=== PATIENT | male | born 1990 | race American Indian/Alaskan Native ===

== ENCOUNTER 2020-10-13 23:09 | Emergency (ER) | payer OTHER ==
[2020-10-14 00:10] LABS: Basophils % (Auto) 0.3 % (0.0-1.8); Eosinophils # (Auto) 0.1 K/mm3 (0.0-0.4); Eosinophils % (Auto) 0.8 % (0.0-4.3); Hematocrit 38.8 % (35.5-45.6); Hemoglobin 12.4 gm/dl (11.8-15.2); Lymphocytes # (Auto) 1.7 K/mm3 (1.2-5.4); Lymphocytes % (Auto) 23.1 % (13.4-35.0); Mean Corpuscular HGB Conc 32 % (32-34); Mean Corpuscular Volume 75 fl (84-94); Monocytes # (Auto) 0.6 K/mm3 (0.0-0.8); Monocytes % (Auto) 7.6 % (0.0-7.3); Platelet Count 213 K/mm3 (140-440); Red Blood Count 5.21 M/mm3 (3.65-5.03); Red Cell Distribution Width 13.7 % (13.2-15.2)
--- NOTE | 2020-10-14 00:16 | XRay Report ---
CHEST 1 VIEW 10/13/2020 11:05 PM INDICATION / CLINICAL INFORMATION: possible Sepsis. COMPARISON: None available. FINDINGS: SUPPORT DEVICES: None. HEART / MEDIASTINUM: Prominence of the right paratracheal region. LUNGS / PLEURA: No significant pulmonary or pleural abnormality. No pneumothorax. ADDITIONAL FINDINGS: No significant additional findings. IMPRESSION: 1. No lung infiltrate. 2. Prominence of the right paratracheal region. Follow-up PA and lateral chest is recommended for mor e complete evaluation. Signer Name: Pedro Lorenz MD Signed: 10/14/2020 12:11 AM Workstation Name: [id number]
[2020-10-14 00:24] LABS: INR 1.06 (0.87-1.13)
[2020-10-14 00:29] LABS: Alanine Aminotransferase 51 units/L (7-56); Albumin 4.2 g/dL (3.9-5); BUN/Creatinine Ratio 13; Blood Urea Nitrogen 13 mg/dL (9-20); Calcium 8.8 mg/dL (8.4-10.2); Hemolysis Index 3
[2020-10-14] MEDS ORDERED: KETOROLAC 30 MG/1 ML INJ IM ONE (00:42)
[2020-10-14] MEDS ORDERED: ACETAMINOPHEN 325 MG TAB PO ONE (00:46)
[2020-10-14 03:46] VITALS: BP 119/84
--- NOTE | 2020-10-14 04:27 | Emergency Department Report ---
HPI - General Chief Complaint: Fever Time Seen by Provider: 10/14/20 01:24 - HPI HPI: Room 19 The patient is a 30-year-old male present with a chief complaint of fever. The patient states for the past 2 days she has had a fever and he noticed swelling to the right side of his neck. The patient states he went to [facility] yesterday and was evaluated. Patient states he was started on antibiotic Keflex and he began taking it today (2 doses). Patient states he developed a fever 105 F prompting him to come to the emergency department for evaluation. Patient denies cough, shortness of breath, nausea/vomiting/diarrhea or pain of any type. The patient states he tested negative for Covid yesterday as well. When asked how he is feeling currently the patient states "I feel okay, just weak." ED Past Medical Hx - Past Medical History Previous Medical History?: Yes Hx HIV: Yes (Unknown CD4, currently on medication) - Surgical History Past Surgical History?: No - Family History Family history: no significant - Social History Smoking Status: Never Smoker Substance Use Type: None (Denies illicit drug use), Alcohol (Occasional) ED Review of Systems ROS: Stated complaint: FEVER Other details as noted in HPI Constitutional: fever, weakness Eyes: denies: eye pain ENT: denies: throat pain Respiratory: denies: cough, shortness of breath Cardiovascular: denies: chest pain Endocrine: no symptoms reported Gastrointestinal: denies: abdominal pain, nausea, vomiting, diarrhea Genitourinary: denies: dysuria Musculoskeletal: denies: back pain Neurological: denies: headache Physical Exam - Physical Exam Vital Signs: Vital Signs 10/13/20 10/14/20 23:38 03:43 Temperature 101.9 F H 97.6 F Pulse Rate 119 H 74 Respiratory 16 16 Rate Blood Pressure 128/82 Blood Pressure 119/84 [Right] O2 Sat by Pulse 98 98 Oximetry Vital Signs 10/13/20 10/14/20 23:38 03:43 Temperature 101.9 F H 97.6 F Pulse Rate 119 H 74 Respiratory 16 16 Rate Blood Pressure 128/82 Blood Pressure 119/84 [Right] O2 Sat by Pulse 98 98 Oximetry Physical Exam: GENERAL: The patient is well-developed well-nourished male lying on stretcher not appearing to be in acute distress. [] HEENT: Normocephalic. Atraumatic. Extraocular motions are intact. Patient has moist mucous membranes. Oropharynx clear. NECK: Supple. Trachea midline CHEST/LUNGS: Clear to auscultation. There is no respiratory distress noted. HEART/CARDIOVASCULAR: Regular. There is no tachycardia. There is no gallop rub or murmur. ABDOMEN: Abdomen is soft, nontender. Patient has normal bowel sounds. There is no abdominal distention. SKIN: There is no rash. There is no edema. There is no diaphoresis. NEURO: The patient is awake, alert, and oriented. The patient is cooperative. The patient has no focal neurologic deficits. The patient has normal speech. GCS 15 MUSCULOSKELETAL: There is no evidence of acute injury. ED Course Vital Signs 10/13/20 10/14/20 23:38 03:43 Temperature 101.9 F H 97.6 F Pulse Rate 119 H 74 Respiratory 16 16 Rate Blood Pressure 128/82 Blood Pressure 119/84 [Right] O2 Sat by Pulse 98 98 Oximetry ED Medical Decision Making - Lab Data Result diagrams: 10/13/20 23:45 10/13/20 23:45 Laboratory Tests 10/13/20 10/13/20 10/13/20 23:45 23:45 23:45 WBC 7.2 RBC 5.21 H Hgb 12.4 Hct 38.8 MCV 75 L MCH 24 L MCHC 32 RDW 13.7 Plt Count 213 Lymph % (Auto) 23.1 [place] % (Auto) 7.6 H Eos % (Auto) 0.8 Baso % (Auto) 0.3 Lymph # (Auto) 1.7 [place] # (Auto) 0.6 Eos # (Auto) 0.1 Baso # (Auto) 0.0 Seg Neutrophils % 68.2 Seg Neutrophils # 4.9 PT 13.6 INR 1.06 VBG pH Sodium 136 L Potassium 4.0 Chloride 100.6 Carbon Dioxide 22 Anion Gap 17 BUN 13 Creatinine 1.0 Estimated GFR > 60 BUN/Creatinine Ratio 13 Glucose 118 H Lactic Acid Calcium 8.8 Total Bilirubin 0.30 AST 28 ALT 51 Alkaline Phosphatase 161 H Total Protein 8.0 Albumin 4.2 Albumin/Globulin Ratio 1.1 Urine Color Urine Turbidity Urine pH Ur Specific [place] Urine Protein Urine Glucose (UA) Urine Ketones Urine Blood Urine Nitrite Urine Bilirubin Urine Urobilinogen Ur Leukocyte Esterase Urine WBC (Auto) Urine RBC (Auto) 10/13/20 10/13/20 10/14/20 23:45 23:45 02:56 WBC RBC Hgb Hct MCV MCH MCHC RDW Plt Count Lymph % (Auto) [place] % (Auto) Eos % (Auto) Baso % (Auto) Lymph # (Auto) [place] # (Auto) Eos # (Auto) Baso # (Auto) Seg Neutrophils % Seg Neutrophils # PT INR VBG pH 7.408 Sodium Potassium Chloride Carbon Dioxide Anion Gap BUN Creatinine Estimated GFR BUN/Creatinine Ratio Glucose Lactic Acid 1.00 0.60 L Calcium Total Bilirubin AST ALT Alkaline Phosphatase Total Protein Albumin Albumin/Globulin Ratio Urine Color Urine Turbidity Urine pH Ur Specific [place] Urine Protein Urine Glucose (UA) Urine Ketones Urine Blood Urine Nitrite Urine Bilirubin Urine Urobilinogen Ur Leukocyte Esterase Urine WBC (Auto) Urine RBC (Auto) 10/14/20 04:01 WBC RBC Hgb Hct MCV MCH MCHC RDW Plt Count Lymph % (Auto) [place] % (Auto) Eos % (Auto) Baso % (Auto) Lymph # (Auto) [place] # (Auto) Eos # (Auto) Baso # (Auto) Seg Neutrophils % Seg Neutrophils # PT INR VBG pH Sodium Potassium Chloride Carbon Dioxide Anion Gap BUN Creatinine Estimated GFR BUN/Creatinine Ratio Glucose Lactic Acid Calcium Total Bilirubin AST ALT Alkaline Phosphatase Total Protein Albumin Albumin/Globulin Ratio Urine Color Yellow Urine Turbidity Clear Urine pH 6.0 Ur Specific [place] 1.018 Urine Protein 30 mg/dl Urine Glucose (UA) Neg Urine Ketones Neg Urine Blood Neg Urine Nitrite Neg Urine Bilirubin Neg Urine Urobilinogen < 2.0 Ur Leukocyte Esterase Neg Urine WBC (Auto) 0.0 Urine RBC (Auto) < 1.0 - Radiology Data Radiology results: report reviewed (Chest x-ray), image reviewed (Chest x-ray) interpreted by me: Chest x-ray-no focal infiltrates, no pneumothorax. [facility] [address] [place] [address] XRay Report Signed Patient: OSMANI EMANUEL MR#: [id number] : 1990 Acct:[id number] Age/Sex: 30 / M ADM Date: 10/13/20 Loc: ED Attending Dr: Ordering Physician: ED DOC, Date of Service: 10/13/20 Procedure(s): XR chest 1V ap Accession Number(s): [id number] cc: CAMPOS GRIMM MD Fluoro Time In Minutes: CHEST 1 VIEW 10/13/2020 11:05 PM INDICATION / CLINICAL INFORMATION: possible Sepsis. COMPARISON: None available. FINDINGS: SUPPORT DEVICES: None. HEART / MEDIASTINUM: Prominence of the right paratracheal region. LUNGS / PLEURA: No significant pulmonary or pleural abnormality. No pneumothorax. ADDITIONAL FINDINGS: No significant additional findings. IMPRESSION: 1. No lung infiltrate. 2. Prominence of the right paratracheal region. Follow-up PA and lateral chest is recommended for more complete evaluation. Signer Name: Pedro Lorenz MD Signed: 10/14/2020 12:11 AM Workstation Name: [id number] Transcribed By: IVETTE Dictated By: Pedro Lorenz MD Electronically Authenticated By: Pedro Lorenz MD Signed Date/Time: 10/14/20 0011 - Medical Decision Making Patient encouraged to hydrate and alternate between Tylenol and ibuprofen for fever control while continue to take his prescribed antibiotics. Strong warnings given - Differential Diagnosis Bronchitis, pharyngitis, URI, Critical care attestation.: If time is entered above; I have spent that time in minutes in the direct care of this critically ill patient, excluding procedure time. ED Disposition Clinical Impression: Fever Disposition: DC-01 TO HOME OR SELFCARE Is pt being admited?: No Does the pt Need Aspirin: No Condition: Stable Instructions: Fever, Adult Additional Instructions: Return to the emergency department should you develop worsening symptoms, inability to tolerate food or liquids, high fever or any other concerns Referrals: TAD ALVAREZ MD [Primary Care Provider] - 3-5 Days [facility] [Provider Group] - 3-5 Days Time of Disposition: 05:00
[2020-10-14 04:52] LABS: Bilirubin,Urine NEG (Negative); Blood,Urine NEG (Negative); Color,Urine Yellow (Yellow); RBC,Urine < 1.0 /HPF (0.0-6.0); Urobilinogen,Urine < 2.0 mg/dL (<2.0)
== END 2020-10-14 05:24 | disposition home or self-care (01) ==
LOC: ED 23:09
DX: R50.9 Fever, unspecified (principal); R22.1 Localized swelling, mass and lump, neck
CPT/HCPCS: 36415; 71045; 80053; 81001; 82140; 82805; 85025; 85610; 87086